=== PATIENT | male | born 1985 | race Caucasian/White ===

== ENCOUNTER 2021-08-22 22:33 | Emergency (ER) | payer OTHER ==
[2021-08-22 23:38] LABS: BUN/CREAT RATIO (CALC) 12.2 RATIO; CREATININE 0.9 mg/dL (0.67-1.17)
[2021-08-22 23:39] LABS: BASOPHIL 0.5 % (0-2); EOSINOPHIL 0.2 % (0-5); HCT 46.2 % (42.0-52.0); LYMPHOCYTE 24.8 % (15-48); MCH 30.1 pg (25.0-31.0); MCHC 34.6 g/dL (32.0-36.0); MCV 86.8 fL (78.0-100.0); MONOCYTE 7.2 % (0-12); MPV 10.3 fL (6.0-9.5); NEUTROPHIL 66.9 % (41-80); NRBC 0; PLT 269 K/uL (150-400); RBC 5.32 M/uL (4.70-6.00); RDW 12.1 % (11.5-14.0); WBC 10.1 K/uL (4.0-10.5)
[2021-08-24] MEDS ORDERED: KEPPRA1000 MG PO (18:42)
== END 2021-08-23 01:30 | disposition home or self-care (01) ==
LOC: FER 22:33
PROVIDERS: Emergency Medicine Emergency Medical Services
DX: G40.409 Other generalized epilepsy and epileptic syndromes, not intractable, without status epilepticus (principal); Z79.899 Other long term (current) drug therapy
CPT/HCPCS: 36415; 80048; 85025; 93005

== ENCOUNTER 2021-08-23 08:19 | Emergency (ER) | payer OTHER ==
[~2021-08-23] VITALS: Ht 172.7 cm; Wt 72.6 kg
[2021-08-23 10:10] LABS: BILIRUBIN NEGATIVE (NEGATIVE); BLOOD NEGATIVE Ery/uL (NEGATIVE); CLARITY CLEAR (CLEAR); COLOR YELLOW (YELLOW); GLUCOSE (U) NORMAL (NORMAL); LEUKOCYTES NEGATIVE Leu/uL (NEGATIVE); NITRITE NEGATIVE (NEGATIVE); PROTEIN NEGATIVE (NEGATIVE); UROBILINOGEN 0.2 mg/dL (0.2-1.0); pH 6.5 (5.0-9.0)
[2021-08-23 10:16] LABS: AMPHETAMINES NEGATIVE (NEGATIVE); BARBITURATES NEGATIVE (NEGATIVE); ECSTASY (MDMA) NEGATIVE (NEGATIVE); MARIJUANA (THC) NEGATIVE (NEGATIVE); METHADONE NEGATIVE (NEGATIVE); OPIATES NEGATIVE (NEGATIVE); OXYCODONE NEGATIVE (NEGATIVE)
[2021-08-24] MEDS ORDERED: KEPPRA1000 MG PO (18:42)
== END 2021-08-23 10:40 | disposition home or self-care (01) ==
LOC: FER 08:19
PROVIDERS: Emergency Medicine
DX: G40.909 Epilepsy, unspecified, not intractable, without status epilepticus (principal); Z79.899 Other long term (current) drug therapy
CPT/HCPCS: 80305; 81003

== ENCOUNTER 2021-08-24 09:04 | Emergency (ER) | payer OTHER ==
[~2021-08-24] VITALS: Ht 172.7 cm; Wt 75.3 kg
[2021-08-24 10:01] LABS: BILIRUBIN NEGATIVE (NEGATIVE); BLOOD NEGATIVE Ery/uL (NEGATIVE); CLARITY CLEAR (CLEAR); COLOR YELLOW (YELLOW); GLUCOSE (U) NORMAL (NORMAL); LEUKOCYTES NEGATIVE Leu/uL (NEGATIVE); NITRITE NEGATIVE (NEGATIVE); PROTEIN NEGATIVE (NEGATIVE); UROBILINOGEN 0.2 mg/dL (0.2-1.0)
[2021-08-24 10:03] LABS: BASOPHIL 0.7 % (0-2); EOSINOPHIL 0.7 % (0-5); HCT 45.5 % (42.0-52.0); HGB 15.5 g/dl (13.2-18.0); LYMPHOCYTE 25.6 % (15-48); MCH 30.2 pg (25.0-31.0); MCHC 34.1 g/dL (32.0-36.0); MCV 88.5 fL (78.0-100.0); MONOCYTE 9.1 % (0-12); MPV 10.3 fL (6.0-9.5); NEUTROPHIL 63.7 % (41-80); NRBC 0; PLT 230 K/uL (150-400); RBC 5.14 M/uL (4.70-6.00); RDW 12.3 % (11.5-14.0); WBC 4.6 K/uL (4.0-10.5)
[2021-08-24 10:07] LABS: AMPHETAMINES NEGATIVE (NEGATIVE); BARBITURATES NEGATIVE (NEGATIVE); ECSTASY (MDMA) NEGATIVE (NEGATIVE); MARIJUANA (THC) NEGATIVE (NEGATIVE); METHADONE NEGATIVE (NEGATIVE); OPIATES NEGATIVE (NEGATIVE); OXYCODONE NEGATIVE (NEGATIVE)
[2021-08-24 10:20] LABS: ALKALINE PHOSHATASE 88 U/L (46-116); ALT 53 U/L (16-63); AST 21 U/L (15-37); BILIRUBIN - TOTAL 0.7 mg/dL (0.2-1.0); BUN 10 mg/dL (7-18); CHLORIDE 104 mmol/L (98-107); CO2 (BICARBONATE) 26 mmol/L (21-32); CPK 135 U/L (39-308); CREATININE 0.91 mg/dL (0.67-1.17); GLOBULIN (CALCULATION) 3.2 g/dL; GLUCOSE 96 mg/dL (74-106); POTASSIUM 3.8 mmol/L (3.5-5.1); TOTAL PROTEIN 7.2 g/dL (6.4-8.2)
[2021-08-24 16:54] LABS: CORONAVIRUS 2019 SARS-COV-2 NEGATIVE (NEGATIVE); INFLUENZA A NAA NEGATIVE (NEGATIVE)
[2021-08-24] MEDS ORDERED: KEPPRA1000 MG PO (18:42)
== END 2021-08-25 15:03 | disposition home or self-care (01) ==
LOC: FER 09:04
PROVIDERS: Internal Medicine
DX: G40.401 Other generalized epilepsy and epileptic syndromes, not intractable, with status epilepticus (principal); Z20.822 Contact with and (suspected) exposure to COVID-19
CPT/HCPCS: 31500; 36415; 70450; 71045; 72125; 80053; 80305; 81003; 82550; 84484; 85025; 93005; 96365; 96366; 96367; 96375; 96376; G0480; J1953; J2060; J2250; J2704; J7030; J7120; Q2009; U0002